=== PATIENT | female | born 1960 | race Caucasian/White ===

== ENCOUNTER → 2023-11-08 06:34 | Day surgery (SDC) | payer OTHER, SELFPAY | LOC: GI 06:34 | PROVIDERS: ATTENDING PHYSICIAN Internal Medicine | DX: Z12.11 Encounter for screening for malignant neoplasm of colon (principal); K55.20 Angiodysplasia of colon without hemorrhage; K64.8 Other hemorrhoids | CPT/HCPCS: G0121 ==

== ENCOUNTER 2023-11-19 05:41 | Emergency (ER) | payer OTHER, SELFPAY ==
[2023-11-19 05:45] VITALS: BP 148/73
--- NOTE | 2023-11-19 06:48 | ED.MUSCINJ ---
HPI-Injury
<Fatoumata Khan DO, Resident - Last Filed: 11/19/23 07:41>
General
Chief Complaint: Musculo-Skeletal Complaint
Source: patient
Time Seen by Provider: 11/19/23 06:36
History of Present Illness-Injury
Is this injury a work related problem?: No
Is pt an associate of [facility]/[place]?: No
Initial Injury comments:
Patient is a 63 YO F presenting to the ED with pain, swelling and feelings of 'lack of circulation' to right hand below level of wrist. She states she was gardening yesterday and afterwards was feeling discomfort which progressed to swelling,
significant pain and inability to bend or use right hand without pain. She took Advil and soaked her hand in epsom salts, without relief.
Review of Systems
<Fatoumata Khan DO, Resident - Last Filed: 11/19/23 07:41>
Review of Systems
Constitutional: Reports no symptoms
EENT: Reports no symptoms
Respiratory: Reports no symptoms
Cardiac: Reports no symptoms
ABD/GI: Reports no symptoms
Skin: Reports other (tightness, swelling)
Neurological: Reports no symptoms
Psychiatric: Reports no symptoms
Musculoskeletal Injury Exam
<Fatoumata Khan DO, Resident - Last Filed: 11/19/23 07:41>
Musculoskeletal Injury Exam
Right Hand:
Pain with Movement?: Severe
Tender to palpation?: Moderate
Soft tissue swelling?: Moderate
External deformity and angulation?: Mild
Joint effusion?: None
Hematoma-local bleeding into tissue?: None
Strain- Sprain- Tear (Connective tissue injury)?: None
Crepitus with movement?: No
Joint instability?: No
Malalignment/deformity?: No
Range of motion: Limited
Distal skin color and temperature: pale
Phy Exam
<Fatoumata Khan DO, Resident - Last Filed: 11/19/23 07:41>
General Physical Exam
General Presentation: well appearing and no apparent distress
General Habitus: normal
General Mental: alert
General Hydration: appears well hydrated
Cardiovascular Exam
Cardiovascular Exam: regular rate/rhythm, no edema, no gallop, no JVD, no murmur and normal peripheral pulses
Pulmonary Exam
Pulmonary Exam: lungs clear, no respiratory distress, no rales, chest non tender, no crackles, no rhonchi, no stridor, no wheezing and no cough
Musculoskeletal Exam
Musculoskeletal Exam: edema, joint swelling and other (right hand tenderness, decreased ROM)
Psychiatric Exam
Psychiatric Exam: normal mood/affect
Injury Course
<Fatoumata Khan DO, Resident - Last Filed: 11/19/23 07:41>
Orders/Labs/Results
Orders:
Orders
11/19/23 05:49
CR Hand - Right Min 3 Views Urgent
Comment:
Reason For Exam: pain, swelling
CR Wrist - Right Min 3 Views Urgent
Comment:
Reason For Exam: pain, swelling
11/19/23 07:14
Oxycodone [Roxicodone] 5 mg PO NOW STA
11/19/23 07:16
Prednisone [Deltasone] 50 mg PO NOW STA
<Jordan Nuñez, DO - Last Filed: 11/19/23 08:22>
Orders/Labs/Results
Orders:
Orders
11/19/23 05:49
CR Hand - Right Min 3 Views Urgent
Comment:
Reason For Exam: pain, swelling
CR Wrist - Right Min 3 Views Urgent
Comment:
Reason For Exam: pain, swelling
11/19/23 07:14
Oxycodone [Roxicodone] 5 mg PO NOW STA
11/19/23 07:16
Prednisone [Deltasone] 50 mg PO NOW STA
<Fatoumata Khan DO, Resident - Last Filed: 11/19/23 07:41>
MDM/Problems Addressed
Differential Diagnosis Includes:
Arthritis
MDM/Problems Addressed:
Pt is a 63 YO F presenting to the ED with wrist and hand pain on the right side. Hand and wrist XRay look negative per ED attending read. 5 mg Oxycodone and 50 mg Prednisone given in ED. 5 day script for both Oxycodone and Prednisone given for pain
and swelling management.
Chronic conditions affecting care:
Arthritis
Acute Exacerbation and/or Progression of Chronic Illness:
Arthritis
<Fatoumata Khan DO, Resident - Last Filed: 11/19/23 07:41>
*Radiology
Radiology exam reviewed: preliminary read by ED provider
*Pulse Oximetry
Patient hypoxic: no
*EKG
Interpreted by ED Provider?: NA
*Charge Hand Interpretation
Rate: Charge Hand- N/A
*Critical Care Note
Total Time (30-74mins, 75-104mins- exclusive of procedures): Not Applicable
ED Attending Note
<Fatoumata Khan DO, Resident - Last Filed: 11/19/23 07:41>
-
Portions of this chart may have been created with voice recognition software.� Occasional wrong word or��sound alike� substitutions may have occurred due to the inherent limitations of voice recognition software.
<Jordan Nuñez DO - Last Filed: 11/19/23 08:22>
ED Attending Note
Patient seen and examined by attending physician: Yes
I performed a history and physical exam of patient and discussed management with resident, I reviewed resident's note and agree with documented findings and plan of care.: Yes
ED Attending Note:
I agree with the residents note
Patient complaining of right hand and wrist pain. Pain developed after doing some gardening yesterday. No fever or chills. Patient is right-hand dominant. She has history of arthritis.
Exam:
Swelling noted particularly the base of the index and middle finger MCP joint. Capillary refill is brisk. Pulses are intact.
Imaging shows no acute abnormality.
Suspect exacerbation of degenerative joint disease. Will treat with NSAIDs and steroids.
Discharge Plan
Departure
Patient Disposition: Home (Routine Discharge)
Date of Disposition: 11/19/23
Time of Disposition: :22
Patient with high blood pressure during this ER visit?: Yes
Condition: Good
Discharge Problem:
Arthritis of hand, right
Instructions: Rheumatoid Arthritis (DC), BLOOD PRESSURE
Prescriptions:
New
oxycodone 5 mg tablet
5 mg PO Q6H PRN (Reason: Pain) Qty: 5 0RF
prednisone 20 mg tablet
40 mg PO DAILY Qty: 8 0RF
No Action
calcium carbonate 600 MG tablet
600 mg PO BID
cholecalciferol (vitamin D3) [Vitamin D3] 1,000 UNIT capsule
1,000 unit PO DAILY
vitamin E (dl, acetate) 400 UNITS capsule
400 units PO DAILY
[id number] liver-vit A-D3 [cod liver oil] 1 EACH capsule
1 cap PO DAILY
Eucerin Eczema Cream Tube
1 gm topical PRN PRN (Reason: eczema)
Glucosamine/Chondroitin/Msm
1 tab PO BID
Patient Comments:
1500mg, 1200mg, 500mg
Losartan
100 mg PO DAILY
Lubricating Eye Drops
2 drp BOTH EYES DAILY
Neosporin Tube
1 gm topical PRN PRN (Reason: cuts)
Nystsatin Cream Tube
1 gm topical PRN PRN (Reason: fungal infection)
Turmeric/Curcumin Tab
1,000 mg PO BID
mupirocin 1 APPLIC ointment
1 applic intranasal BID Qty: 1 0RF
Rx Instructions:
apply to each end of qtip and swab inside of nose--safe to use on nasal mucosa--start sun
celecoxib 200 MG capsule
200 mg PO DAILY 0RF
sennosides [senna] 1 TABLET tablet
2 tab PO BID 0RF
acetaminophen 325 MG tablet
650 mg PO Q4H 0RF
aspirin 325 MG tablet,delayed release (DR/EC)
325 mg PO DAILY 0RF
docusate sodium 100 MG capsule
100 mg PO BID 0RF
mupirocin 1 APPLIC ointment
1 applic intranasal BID 0RF
oxycodone 5 MG tablet
5 mg PO Q4HPRN PRN (Reason: mild pain) 0RF
Referrals:
Herve Mayfield MD [Family Provider] - Call in 1-3 days for appt
Interventions
Interventions:
*Risk Screen - Suicide Last Done: 11/19/23 05:45
*General Assessment Last Done: 11/19/23 05:45
*Neglect/Abuse Screening Last Done: 11/19/23 05:45
ED- Fall Risk Assessment Last Done: 11/19/23 06:57
*ED COVID-19 Vaccine History Last Done: 11/19/23 06:54
*Nursing Disposition Last Done: 11/19/23 07:45
ED-Musculoskeletal Assessment Last Done: 11/19/23 06:57
Discharge Date and Time
Discharge Date/Time: 11/19/23 08:12
Print Language: FAROESE
[2023-11-19 06:56] VITALS: BP 143/62
[2023-11-19] MEDS: ROXICODONE 5 MG PO (07:27)
[2023-11-19] MEDS: DELTASONE 50 MG PO (07:27)
== END 2023-11-19 08:12 | disposition home or self-care (01) ==
LOC: EMR 05:41
PROVIDERS: EMERGENCY PHYSICIAN Emergency Medicine; FAMILY PHYSICIAN Family Medicine
DX: M19.041 Primary osteoarthritis, right hand (principal); M79.641 Pain in right hand; M25.531 Pain in right wrist; R03.0 Elevated blood-pressure reading, without diagnosis of hypertension; Z79.82 Long term (current) use of aspirin; Z88.2 Allergy status to sulfonamides; Z91.018 Allergy to other foods; Z91.048 Other nonmedicinal substance allergy status
CPT/HCPCS: 99283; 73110; 73130

== ENCOUNTER → 2023-11-24 08:22 | Outpatient (REF) | payer OTHER, SELFPAY | LOC: WDC 08:22 | PROVIDERS: ATTENDING PHYSICIAN Family Medicine | DX: Z12.31 Encounter for screening mammogram for malignant neoplasm of breast (principal) | CPT/HCPCS: 77063; 77067 ==

== ENCOUNTER → 2024-01-18 11:24 | Outpatient (REF) | payer OTHER, SELFPAY | LOC: HWRAD 11:24 | PROVIDERS: ATTENDING PHYSICIAN Family Medicine; OTHER PHYSICIAN Internal Medicine Rheumatology | DX: M79.641 Pain in right hand (principal); M79.642 Pain in left hand | CPT/HCPCS: 73130 ==

== ENCOUNTER → 2024-09-10 15:17 | Outpatient (REF) | payer OTHER, SELFPAY | LOC: RAD 15:17 | PROVIDERS: ATTENDING PHYSICIAN Nurse Practitioner Family; FAMILY PHYSICIAN Family Medicine | DX: M25.551 Pain in right hip (principal) | CPT/HCPCS: 73502; 73552 ==

== ENCOUNTER 2024-11-01 09:27 | Outpatient (RCR) | payer OTHER, SELFPAY | END 2024-11-01 23:59 | disposition home or self-care (01) | LOC: RPT 09:27 | PROVIDERS: ATTENDING PHYSICIAN Physical Medicine & Rehabilitation; FAMILY PHYSICIAN Family Medicine | DX: M54.16 Radiculopathy, lumbar region (principal) | CPT/HCPCS: 97110; 97162; 97535 ==

== ENCOUNTER → 2024-11-26 11:17 | Outpatient (REF) | payer OTHER, SELFPAY | LOC: WDC 11:17 | PROVIDERS: ATTENDING PHYSICIAN Obstetrics & Gynecology Gynecology; FAMILY PHYSICIAN Family Medicine | DX: Z12.31 Encounter for screening mammogram for malignant neoplasm of breast (principal) | CPT/HCPCS: 77063; 77067 ==

== ENCOUNTER 2024-11-28 11:09 | Outpatient (RCR) | payer OTHER, SELFPAY | END 2024-11-28 23:59 | disposition home or self-care (01) | LOC: RPT 11:09 | PROVIDERS: ATTENDING PHYSICIAN Physical Medicine & Rehabilitation; FAMILY PHYSICIAN Family Medicine | DX: M54.16 Radiculopathy, lumbar region (principal); Z73.6 Limitation of activities due to disability; R26.89 Other abnormalities of gait and mobility; M62.81 Muscle weakness (generalized); M06.9 Rheumatoid arthritis, unspecified; G89.29 Other chronic pain | CPT/HCPCS: 97110 ==

== ENCOUNTER 2025-04-04 10:24 | Inpatient (IN) | payer OTHER, SELFPAY ==
[2025-04-04] VITALS (17 sets, daily range): BP systolic 103–147; BP diastolic 55–81; BMI 21.0
--- NOTE | 2025-04-04 05:16 | ED.GENMED ---
History of Present Illness
<Brianna Kumari PA-C - Last Filed: 04/05/25 07:07>
General
Chief Complaint: Abdominal Pain
Time Seen by Provider: 04/04/25 05:06
History of Present Illness
History of Present Illness:
see MDM
Phy Exam
<Brianna Kumari PA-C - Last Filed: 04/05/25 07:07>
Physical Exam
Physical Exam:
see MDM
Course
<Brianna Kumari PA-C - Last Filed: 04/05/25 07:07>
Orders/Labs/Results
Orders:
Orders
04/04/25 05:16
CT Abd/pel W Iv And Oral Contr Urgent
Comment:
Reason For Exam: RLQ Pain
0.9% Sodium Chloride 1000 ml [Nss] 1,000 ml IV BOLUS
Iohexol [Omnipaque] See Protocol PO NOW STA
Ketorolac [Toradol] 15 mg IV NOW STA
04/04/25 05:34
Complete Blood Count/With Diff Urgent
Comprehensive Metabolic Panel Urgent
Lipase Urgent
04/04/25 Breakfast
NPO
Allow oral meds: No
Allow clear liquids: No
04/04/25 08:09
Urinalysis Reflex To Culture Urgent
Date Specimen was Collected: 04/04/25
Time Specimen was Collected: 08:08
Urine Microscopic Reflex Cult Urgent
04/04/25 08:57
Piperacillin/Tazo 3.375 Gram [Zosyn] 3.375 gram in 50 ml IV NOW
04/04/25 08:59
Consult Surgery [SURGICAL CONSULT] Urgent
Consulting Provider: David Echevarria
Was physician already notified: Yes
04/04/25 09:10
Fentanyl Citrate/Pf [Sublimaze] 25 mcg IV [id number] PRN
HYDROmorphone [Dilaudid] 0.25 mg IV PACU-Q5MPRN PRN
HYDROmorphone [Dilaudid] 0.5 mg IV PACU-Q5MPRN PRN
Ondansetron Injectable [Zofran] 4 mg IV PACU-ONCEPRN PRN
Prochlorperazine [Compazine] 5 mg IV PACU-ONCEPRN PRN
Notify MD As Directed
Notify physician if: for SDS patients with known or suspected sleep obstructive sleep apnea, monitor in the
PACU.
Notify MD for any apneic/desaturation episodes
O2 Therapy [RESP] Urgent
Titrate/Wean O2 to maintain O2 sat greater than (%): 92
Special Instructions: -Provide supplemental oxygen to achieve O2 sat of 92% or greater.
-After 15 min, may wean O2 and discontinue if patient is able to maintain O2 sat of 92%
or greater during recovery period.
If patient is a discharge home, without oxygen therapy, notify anestheiologist if
unable to maintain O2 SAT of 92% or greater on room air for MD clearance.
04/04/25 09:15
Normosol (Mult Electrolytes) [Normosol-R/Plasmalyte-A] 1,000 ml IV PER PROTOCOL
04/04/25 09:57
Admit/Transfer Patient As Directed
Co-Sign Provider:
Level of Care: Inpatient admission
Assign to:: Medical/Surgical
Physician / Group: hospitalist
Diagnosis: acute appendicitis
Reason for Hospitalization: acute appendicitis
Expected length of stay greater than two midnights?: Yes
ELOS- Estimated Length of Stay in days: 3
I certify the patient meets the requirements for IP care: Yes
04/04/25 09:58
Bupivacaine 0.5%Pf/Epinephrin [Sensorcain-Mpf Epi 0.5%-0.0005] 30 ml .ROUTE .STK-MED ONE
PRN Pain Medication Management As Directed
May give lesser potent ordered pain med per pt: Yes
preference::
Protocol:: Medication orders for pain may be administered in a
manner that supports deferring to patient preference
when the pt is:
- Requesting an ordered lesser potent pain medication.
Least to most potent pain medications are defined
as: acetaminophen < NSAID < tramadol < opioids
(morphine, oxycodone, hydromorphone).
- Requesting a lesser dose of the same medication IF
ORDERED.
- Requesting a less intrusive route of administration
if both routes are prescribed by the provider (PO <
IV).
04/04/25 10:04
Dexamethasone Sod Phosphate [Decadron] 20 mg .ROUTE .STK-MED ONE
Fentanyl Citrate/Pf [Sublimaze] 100 mcg .ROUTE .STK-MED ONE
Lidocaine HCl/Pf [Xylocaine-Mpf 1% Vial] 50 mg .ROUTE .STK-MED ONE
Midazolam HCl [Versed] 2 mg .ROUTE .STK-MED ONE
Ondansetron Injectable [Zofran] 4 mg .ROUTE .STK-MED ONE
Propofol [Diprivan] 20 ml .ROUTE .STK-MED
04/04/25 10:07
Code Status As Directed
Resuscitation Status: Full Code
04/04/25 10:08
Rocuronium [place] [Rocuronium] 50 mg .ROUTE .STK-MED ONE
04/04/25 10:16
Bisacodyl [Dulcolax] 10 mg RECTAL [id number] PRN
04/04/25 10:17
Activity As Directed
Activity Level: Out of Bed-Early Mobility
Vital Signs As Directed
Frequency: Per unit guidelines
04/04/25 10:28
HYDROmorphone [Dilaudid] 0.25 mg IV Q4HPRN PRN
04/04/25 10:30
0.9% Sodium Chloride 1000 ml [Nss] 1,000 ml IV 100 mls/hr
04/04/25 11:00
Ketorolac [Toradol] 10 mg IV Q6HPRN PRN
04/05/25 05:28
Basic Metabolic Panel IN AM
Complete Blood Count/With Diff IN AM
Abnormal Lab Results
04/04/25 04/04/25
05:34 08:09
WBC 16.2 H 10^3/uL
(4.8-10.8)
Abs Immat Gran (auto) 0.1 H 10^3/uL
(0-0.05)
Absolute Neuts (auto) 13.3 H 10^3/uL
(1.4-6.5)
Absolute Monos (auto) 1.5 H 10^3/uL
(0.1-0.6)
Neutrophils % 82.6 H %
(42.2-75.2)
Lymphocytes % 7.2 L %
(20.5-51.1)
Creatinine 0.5 L mg/dL
(0.6-1.0)
Glucose 127 H mg/dl
(70-99)
Urine Bacteria (Reflex) Few A
(Negative)
Urine Albumin (Reflex) 1+ A
(Neg - Trace)
04/04/25 05:34
04/04/25 05:34
Vital Signs
Initial and Last Documented VS:
Initial Vital Signs
Temp Pulse Resp BP Pulse Ox
36.8 C 91 20 143/81 99
04/04/25 04:55 04/04/25 04:55 04/04/25 04:55 04/04/25 04:55 04/04/25 04:55
Last Documented Vital Signs
Temp Pulse Resp BP Pulse Ox
36.7 C 58 16 130/67 94
04/05/25 03:00 04/05/25 03:00 04/05/25 03:00 04/05/25 03:00 04/05/25 03:00
<Vamsi Beth, DO - Last Filed: 04/04/25 09:00>
Orders/Labs/Results
Orders:
Orders
04/04/25 05:16
CT Abd/pel W Iv And Oral Contr Urgent
Comment:
Reason For Exam: RLQ Pain
0.9% Sodium Chloride 1000 ml [Nss] 1,000 ml IV BOLUS
Iohexol [Omnipaque] See Protocol PO NOW STA
Ketorolac [Toradol] 15 mg IV NOW STA
04/04/25 05:34
Complete Blood Count/With Diff Urgent
Comprehensive Metabolic Panel Urgent
Lipase Urgent
04/04/25 Breakfast
NPO
Allow oral meds: No
Allow clear liquids: No
04/04/25 08:09
Urinalysis Reflex To Culture Urgent
Date Specimen was Collected: 04/04/25
Time Specimen was Collected: 08:08
Urine Microscopic Reflex Cult Urgent
04/04/25 08:57
Piperacillin/Tazo 3.375 Gram [Zosyn] 3.375 gram in 50 ml IV NOW
04/04/25 08:59
Consult Surgery [SURGICAL CONSULT] Urgent
Consulting Provider: David Echevarria
Was physician already notified: Yes
04/04/25 09:10
Fentanyl Citrate/Pf [Sublimaze] 25 mcg IV [id number] PRN
HYDROmorphone [Dilaudid] 0.25 mg IV PACU-Q5MPRN PRN
HYDROmorphone [Dilaudid] 0.5 mg IV PACU-Q5MPRN PRN
Ondansetron Injectable [Zofran] 4 mg IV PACU-ONCEPRN PRN
Prochlorperazine [Compazine] 5 mg IV PACU-ONCEPRN PRN
Notify MD As Directed
Notify physician if: for SDS patients with known or suspected sleep obstructive sleep apnea, monitor in the
PACU.
Notify MD for any apneic/desaturation episodes
O2 Therapy [RESP] Urgent
Titrate/Wean O2 to maintain O2 sat greater than (%): 92
Special Instructions: -Provide supplemental oxygen to achieve O2 sat of 92% or greater.
-After 15 min, may wean O2 and discontinue if patient is able to maintain O2 sat of 92%
or greater during recovery period.
If patient is a discharge home, without oxygen therapy, notify anestheiologist if
unable to maintain O2 SAT of 92% or greater on room air for MD clearance.
04/04/25 09:15
Normosol (Mult Electrolytes) [Normosol-R/Plasmalyte-A] 1,000 ml IV PER PROTOCOL
04/04/25 09:57
Admit/Transfer Patient As Directed
Co-Sign Provider:
Level of Care: Inpatient admission
Assign to:: Medical/Surgical
Physician / Group: hospitalist
Diagnosis: acute appendicitis
Reason for Hospitalization: acute appendicitis
Expected length of stay greater than two midnights?: Yes
ELOS- Estimated Length of Stay in days: 3
I certify the patient meets the requirements for IP care: Yes
04/04/25 09:58
Bupivacaine 0.5%Pf/Epinephrin [Sensorcain-Mpf Epi 0.5%-0.0005] 30 ml .ROUTE .STK-MED ONE
PRN Pain Medication Management As Directed
May give lesser potent ordered pain med per pt: Yes
preference::
Protocol:: Medication orders for pain may be administered in a
manner that supports deferring to patient preference
when the pt is:
- Requesting an ordered lesser potent pain medication.
Least to most potent pain medications are defined
as: acetaminophen < NSAID < tramadol < opioids
(morphine, oxycodone, hydromorphone).
- Requesting a lesser dose of the same medication IF
ORDERED.
- Requesting a less intrusive route of administration
if both routes are prescribed by the provider (PO <
IV).
04/04/25 10:04
Dexamethasone Sod Phosphate [Decadron] 20 mg .ROUTE .STK-MED ONE
Fentanyl Citrate/Pf [Sublimaze] 100 mcg .ROUTE .STK-MED ONE
Lidocaine HCl/Pf [Xylocaine-Mpf 1% Vial] 50 mg .ROUTE .STK-MED ONE
Midazolam HCl [Versed] 2 mg .ROUTE .STK-MED ONE
Ondansetron Injectable [Zofran] 4 mg .ROUTE .STK-MED ONE
Propofol [Diprivan] 20 ml .ROUTE .STK-MED
04/04/25 10:07
Code Status As Directed
Resuscitation Status: Full Code
04/04/25 10:08
Rocuronium [place] [Rocuronium] 50 mg .ROUTE .STK-MED ONE
04/04/25 10:16
Bisacodyl [Dulcolax] 10 mg RECTAL [id number] PRN
04/04/25 10:17
Activity As Directed
Activity Level: Out of Bed-Early Mobility
Vital Signs As Directed
Frequency: Per unit guidelines
04/04/25 10:28
HYDROmorphone [Dilaudid] 0.25 mg IV Q4HPRN PRN
04/04/25 10:30
0.9% Sodium Chloride 1000 ml [Nss] 1,000 ml IV 100 mls/hr
04/04/25 11:00
Ketorolac [Toradol] 10 mg IV Q6HPRN PRN
04/05/25 05:28
Basic Metabolic Panel IN AM
Complete Blood Count/With Diff IN AM
Abnormal Lab Results
04/04/25 04/04/25
05:34 08:09
WBC 16.2 H 10^3/uL
(4.8-10.8)
Abs Immat Gran (auto) 0.1 H 10^3/uL
(0-0.05)
Absolute Neuts (auto) 13.3 H 10^3/uL
(1.4-6.5)
Absolute Monos (auto) 1.5 H 10^3/uL
(0.1-0.6)
Neutrophils % 82.6 H %
(42.2-75.2)
Lymphocytes % 7.2 L %
(20.5-51.1)
Creatinine 0.5 L mg/dL
(0.6-1.0)
Glucose 127 H mg/dl
(70-99)
Urine Bacteria (Reflex) Few A
(Negative)
Urine Albumin (Reflex) 1+ A
(Neg - Trace)
04/04/25 05:34
04/04/25 05:34
Vital Signs
Initial and Last Documented VS:
Initial Vital Signs
Temp Pulse Resp BP Pulse Ox
36.8 C 91 20 143/81 99
04/04/25 04:55 04/04/25 04:55 04/04/25 04:55 04/04/25 04:55 04/04/25 04:55
Last Documented Vital Signs
Temp Pulse Resp BP Pulse Ox
36.7 C 58 16 130/67 94
04/05/25 03:00 04/05/25 03:00 04/05/25 03:00 04/05/25 03:00 04/05/25 03:00
<Brianna Kumari PA-C - Last Filed: 04/05/25 07:07>
MDM/Problems Addressed
Differential Diagnosis Includes:
see MDM
MDM/Problems Addressed:
Note:
CHIEF COMPLAINT(S)
Severe abdominal pain and nausea.
HISTORY OF PRESENT ILLNESS
The patient is a 64-year-old female h/o RA who presented to the emergency room with severe abdominal pain and nausea. She reports that the pain began suddenly at around 8:00 PM last night when she was preparing to go to bed early. The pain is sharp
and initially localized over the umbilicus, then radiated to the right side of the abdomen. The patient described the pain as worsening over time, particularly with movement, and tender to touch on the right side. Despite attempts to alleviate the
symptoms with simethicone and calcium carbonate (Gas-X and Tums) around 9:00 PM, there was no relief. Her pain currently rates as a 6 out of 10 but escalates with movement. 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
pt has not had fever, chills, urinary sypmtoms, diarrhea, urgency, frequency, vomiting
PAST MEDICAL AND SURGICAL HISTORY
The patient has had gallbladder surgery, two sections, and hip surgery. She also has a history of gallstones.
CHRONIC MEDICAL CONDITIONS SIGNIFICANTLY AFFECTING CARE
The patient has a history of hypertension for which she takes losartan and receives abatacept (Orencia) infusions monthly for rheumatoid arthritis.
MEDICATIONS
- Losartan for hypertension
- Finasteride for hair thinning
- Abatacept (Orencia) infusions for rheumatoid arthritis, next due next week.
REVIEW OF SYSTEMS
- Gastrointestinal: Abdominal pain, nausea, tenderness on the right abdominal area, no diarrhea.
- Urinary: No burning, frequency, or urgency noted.
- General: No fever reported.
PHYSICAL EXAM
GENERAL: Alert , in no apparent distress
EYE: pupils equal and reactive
NECK: Supple
ENT: o/p clr, mmm.
CARDIAC: Regular rate and rhythm .
LUNGS: Clear breath sounds bilaterally, no acute respiratory distress, no wheezes/rales/rhonchi
ABDOMEN: Soft, right lower quadrant tenderness, moderate, mild voluntary guarding, no rebound no cvat, normal bowel sounds
NEUROLOGICAL: Alert and oriented, no focal neuro deficits
SKIN: Warm and dry, skin intact.
MUSCULOSKELETAL: No edema, well perfused. neg marie's sign
PSYCH: Normal and appropriate interaction.
Nursing notes reviewed and vital signs reviewed.
PLAN
A computed tomography scan of the abdomen will be performed. Urinalysis will be conducted. The patient was advised to avoid eating or drinking until further tests are evaluated. The patient declined narcotic analgesia but agreed to ibuprofen for
pain relief. Intravenous fluids were discussed as part of the treatment plan.
DIFFERENTIAL DIAGNOSIS
The Differential Diagnosis includes, in no particular order and is not limited to:
1. Appendicitis
2. Cholecystitis
3. Intestinal obstruction
4. Gastroenteritis
5. Diverticulitis
6. Kidney stones
7. Peptic ulcer disease
8. Pancreatitis
9. Ovarian pathology (e.g., cyst, torsion)
10. Urinary tract infectio
64-year-old female got woken up from sleep by periumbilical pain that was severe that migrated to her right lower quadrant with some nausea without vomiting. There is no fever. She tried Gas-X without relief. She is not having any additional
symptoms. Patient is quite tender in the right lower quadrant. Will workup for an appendicitis versus diverticulitis. Previous cholecystectomy
Signed out to Dr. Beth pending CT
<Brianna Kumari PA-C - Last Filed: 04/05/25 07:07>
*Pulse Oximetry
SaO2: 99
Oxygen Mode of Delivery: Room air
Patient hypoxic: no (94)
*Critical Care Note
Total Time (30-74mins, 75-104mins- exclusive of procedures): Not Applicable
ED Attending Note
<Brianna Kumari PA-C - Last Filed: 04/05/25 07:07>
-
Portions of this chart may have been created with voice recognition software.� Occasional wrong word or��sound alike� substitutions may have occurred due to the inherent limitations of voice recognition software.
<Vamsi Beth, DO - Last Filed: 04/04/25 09:00>
ED Attending Note
Patient seen and examined by attending physician: Yes
I performed the substantive portion of visit, reviewed & personally made and approve the management plan that is documented in note by myself or GRACE.: Yes
ED Attending Note:
I have seen and evaluated the patient with a [id number] encounter. I have spoken to the advance practicer provider and involved in the medical history, the physical exam, medical decision making.
Evaluation and management service: agree unless noted differently below.
Results interpretation: agree unless noted differently below.
Focused HPI: 64-year-old female presenting with right lower quadrant pain. This is associated with chills.
Physical exam: Point tenderness to right lower quadrant without rebound
Medical Decision Making: CT concerning for acute appendicitis. Radiology concerned there could be a possible perforation component. General surgery made aware. Patient started on IV antibiotics. Will admit
Discharge Plan
Departure
Patient Disposition: Admit
Date of Disposition: 04/04/25
Time of Disposition: 08:58
Admit to: Med/Surg
Presentation/result/management discussed w/ accepting MD/DO: Hospitalist
Discharge Problem:
Acute appendicitis
Interventions
Interventions:
*Risk Screen - Suicide Last Done: 04/04/25 04:58
*General Assessment Last Done: 04/04/25 05:10
*Neglect/Abuse Screening Last Done: 04/04/25 04:58
*ED- Fall Risk Assessment Last Done: 04/04/25 04:58
*ED COVID-19 Vaccine History Last Done: 04/04/25 04:58
*ED Influenza Vaccine History Last Done: 04/04/25 04:58
*Nursing Disposition Last Done: 04/04/25 10:25
XV-Otthja-Pgwcuvezoo Assessment Last Done: 04/04/25 05:10
Discharge Date and Time
Discharge Date/Time: 04/04/25 10:29
[2025-04-04] MEDS: NSS 1000 IV ×2 (05:33→12:51)
[2025-04-04] MEDS: TORADOL 15 MG IV (05:35)
[2025-04-04] MEDS: OMNIPAQUE 50 ML PO (05:38)
[2025-04-04 05:53] LABS: Hematocrit 39.1 % (37.0-47.0); Hemoglobin 13.4 g/dL (12.0-16.0); Mean Corp Hgb Conc. 34.3 g/dL (33.0-37.0); Mean Corpuscular Volume 89.1 fL (81.0-99.0); Nucleated Red Blood Cells % 0 %; Platelet Count 231 10^3/uL (130-400); Red Cell Dist. Width 13.1 % (11.5-14.5)
[2025-04-04 06:09] LABS: ALT (SGPT) 21 U/L (0-35); AST (SGOT) 31 U/L (14-36); Albumin 4.2 g/dl (3.5-5.0); Alkaline Phosphatase 63 U/L (38-126); Blood Urea Nitrogen 16 mg/dl (7-17); Calcium 10.1 mg/dl (8.4-10.2); Carbon Dioxide 27 mmol/L (22-30); Chloride 105 mmol/L (98-107); Estimated Creatinine Clearance 91 ml/min; Glucose 127 mg/dl (70-99); Lipase 107 U/L (23-300); Potassium 3.9 mmol/L (3.5-5.1); Sodium 136 mmol/L (135-145); Total Protein 7.3 g/dl (6.3-8.2); eGFR > 60.00
[2025-04-04 08:27] LABS: Urine Character Clear (Clear)
[2025-04-04 08:46] LABS: Urine Red Blood Cell 0-2 /HPF (0-2); Urine White Cell 0-2 /HPF (0-5)
[2025-04-04] MEDS: ZOSYN 50 IV ×3 (09:32→22:32)
--- NOTE | 2025-04-04 10:16 | HPS.HSE ---
Addendum entered and electronically signed by Mateo Bradford MD 04/04/25 12:53:
Seen and examined by me independently in collaboration with the FP resident Dr. Garcia.
Past medical history/social history/medication/allergies reviewed.
Lab data and imaging data reviewed.
Patient's presents with acute abdominal pain and nausea and discovered to have acute appendicitis.
Patient seen postop in PACU. She had laparoscopic adenectomy. Discussed with Dr. Echevarria general surgeon-she is severely inflamed appendix with perforation.
Currently in PACU. Denies any nausea vomiting. Denies any chest pain or palpitations. Denies shortness of breath.
Pain from surgical site and abdomen is okay.
No fever or chills.
Alert and oriented. Nontoxic looking.
s1+s2 heard no tachycardia. Chest anteriorly clear.
Abdomen soft.
Patient already cleared for diet.
Continue with empirical Zosyn for now with above findings.
Hold Orencia.
Continue with losartan with parameters
Original Note:
Family Physician
-
Family Physician: Mikaela Shell
Chief Complaint
-
abd pain, nausea, vomiting
History of Present Illness
64-year-old female with past medical history of hypertension, rheumatoid arthritis on abatacept presented with severe abdominal pain and nausea. She notes that pain started yesterday at around 8 PM when she was getting ready to go to bed. Pain was
located around the right side of abdomen surrounding umbilical and right lower quadrant. She described pain as sharp in intensity and initially it was localized over the umbilical's then radiated to right lower quadrant. The pain worsened over
time particularly with movement. She tried Gas-X and Tums around 9-9:30 PM unfortunately there was no relief. Her pain is around 8 out of 10 and worsens with movement. She denies any fever, chills, chest pain, shortness of breath.
In the ED, patient is afebrile but experiencing chills. White count is 11,[address] abdominal/pelvis scan shows acute appendicitis with perforation. Vitals are stable. She is on fluids and IV Zosyn. General surgery is aware and patient is being
taken to surgery for appendecectomy.
Medical History
Past Medical History
Past Medical History: Reports HTN and Other (Rheumatoid arthritis)
Past Surgical History: Reports Cholecystectomy
Social History
Tobacco: Non-smoker
Alcohol: None
Drug: None
Personal:
Living: With Family
Employment: Employed
Family History
Family History: Not pertinent
Allergies / Home Medications
Allergies reflects when Allergies were last updated in [employer].
Home Medications with original date entered in [employer]
Allergy/Medication List:
Allergies
Allergy/AdvReac Type Severity Reaction Status Date / Time
carrot Allergy Anaphylaxis Verified 04/04/25 09:25
pollen extracts Allergy Sneezing Verified 04/04/25 09:25
watery
eyes -
seasonal
Sulfa (Sulfonamide AdvReac stomach Verified 04/04/25 04:58
Antibiotics) upset
Home Medications
calcium carbonate 600 mg PO BID Supplement 03/24/18
abatacept (with maltose) 250 mg intravenous solution (Orencia (with maltose)) 500 mg IV Q4W Autoimmune Disorder 04/04/25
finasteride 5 mg tablet 5 mg PO DAILY alopecia 04/04/25
glucosamine sulf dipot chlr,msm,chond 550 mg-C 30 mg-ingrid 1 mg capsule (Glucosamine Chondroitin) 1 cap PO BID Supplement 04/04/25
losartan 50 mg tablet 50 mg PO DAILY Blood Pressure 04/04/25
multivitamin 1 tab PO BID Supplement 04/04/25
omega 3-dha 120 mg-epa 180 mg-fish oil 600 mg capsule 1 cap PO BID Supplement 04/04/25
turmeric 400 mg capsule 400 mg PO BID Supplement 04/04/25
Review of Systems
-
History Source: Patient
A 12 point ROS was completed and negative except as noted: Yes
Physical Exam
Vital Signs
Vital Signs
Temp Pulse Resp BP Pulse Ox
100.6 F H 74 22 147/66 95
04/04/25 09:30 04/04/25 08:30 04/04/25 08:30 04/04/25 08:12 04/04/25 09:31
Physical Exam
General: Conversant and Pain (moderate - severe abd pain )
HEENT: NormoCephalic and Anicteric
Respiratory: Clear
Cardiac: S1/S2 and Regular Rhythm
GI: Non Distended, Normal Bowel Sounds and Tender (moderate RLQ tenderness with voluntary guarding, no rebound tenderness. )
Musculoskeletal: No Edema
Skin: Warm and Dry
Neuro: AO x 3
Hematologic/Lymphatic: No Lymphadenopathy
Psych: Calm
Laboratory Results
-
04/04/25 05:34
04/04/25 05:34
Laboratory Results
Total Bilirubin 0.6 mg/dl (0.2-1.3) 04/04/25 05:34
AST 31 U/L (14-36) 04/04/25 05:34
ALT 21 U/L (0-35) 04/04/25 05:34
Alkaline Phosphatase 63 U/L (38-126) 04/04/25 05:34
Lipase 107 U/L (23-300) 04/04/25 05:34
Data Reviewed
-
CT Scan: Report Reviewed by me and Discussed with Physician
Lab Data: Labs Reviewed by me and Discussed with Physician
Impression/Plan
-
IMPRESSION:
Acute appendicitis
Nausea/vomiting
History of hypertension
History of rheumatoid arthritis
History of androgenic alopecia
64-year-old female presented with right lower quadrant pain and nausea. CT scan of abdomen/pelvis reveals acute appendicitis with possible appendiceal perforation.
PLAN:
Acute appendicitis
Afebrile, leukocytosis 16,200 with left shift
NPO for surgery
Hold oral medications
IV fluids and IV Dilaudid for pain control
Continue IV Zosyn, started in ED as pt started to experience chills.
General Surgery aware, soon patient will be taken to surgery
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
Nausea/vomiting
IV Zofran as needed
Keep patient NPO
History of hypertension
Hold losartan
History of rheumatoid arthritis
Hold abatacept
History of androgenic alopecia
Hold finasteride
Full code
NPO
Heparin
--- NOTE | 2025-04-04 11:12 | W.IMMPOSTOP ---
Surgical Immed Post Op Note
-
Primary Surgeon: Swathi
Pre-op Diagnosis: Acute appendicitis
Post-op Diagnosis: Same
Procedure Performed: Laparoscopic appendectomy
Anesthesia Type: GETA
Specimen / Cultures: Appendix
Estimated Blood Loss: 7cc
Complications: None immediate
Operative Findings: Severely inflamed gangrenous appendix, no perforation no pus
--- NOTE | 2025-04-04 11:20 | OR.RPT ---
Operative Report
Operative Report
Primary Surgeon: Swathi
Pre-op Diagnosis: Acute appendicitis
Post-op Diagnosis: Same
Procedure Performed: Laparoscopic appendectomy
Anesthesia Type: GETA
Specimen / Cultures: Appendix
Estimated Blood Loss: 7cc
Complications: None immediate
Operative Findings: Severely inflamed gangrenous appendix, no perforation no pus
Date of Surgery: 04/04/25
Indications: This 64F developed right lower quadrant abdominal pain and on workup was found to have acute appendicitis. Laparoscopic appendectomy was elected.
Description of procedure: The patient was placed on the operating table in the supine position. General anesthesia was induced. A time-out was completed verifying correct patient, procedure, site, positioning, and special equipment prior to
beginning this procedure. An orogastric tube was placed. The abdomen was prepped and draped in the usual sterile fashion. A stab incision was made in left upper quadrant and the Veress needle was inserted. Proper position was confirmed by aspiration
and saline meniscus test. The abdomen was insufflated with carbon dioxide to a pressure of 12 mmHg. The patient tolerated insufflation well.
A 5mm optical trocar was then inserted at the left lower quadrant. The laparoscope was inserted and the abdomen inspected. No injuries from initial trocar placement or Veress needle insertion were noted. Additional trocars were then inserted in the
following locations: a 12-mm trocar at the umbilicus and a 5-mm trocar midline in the suprapubic space. The abdomen was inspected and no abnormalities were found. The table was placed in the Trendelenburg position with the right side up. TThe
appendix was lateral to the cecum and densely adherent to it. The tip of the appendix was then gently grasped with an atraumatic grasper and retracted toward the patient�s feet and abdominal wall. The cecum was gently bluntly teased away from it.
This maneuver exposed the appendiceal blood supply which was controlled with the Ligasure device. Following this, a laparoscopic linear cutting stapler with a 45mm mckeon load was deployed and used to transect the appendix at its base. The appendix
appeared gangrenous but without perforation. The appendix was placed in an endoscopic retrieval bag, removed through the umbilical port, and passed off the table as a specimen.
We then turned our attention to the staple line, which was noted to be hemostatic. The pelvis and right lower quadrant were irrigated with copious sterile saline until effluent ran clear. The umbilical trocar site was closed at the fascial level
laparoscopically with 2-0 PDS under direct vision. Secondary trocars were removed under direct vision and noted to be hemostatic. The laparoscope was withdrawn and the abdomen was allowed to collapse. The skin was closed with subcuticular sutures of
4-0 monocryl and topical skin adhesive. The orogastric tube was removed.
The patient tolerated the procedure well and was taken to the postanesthesia care unit in stable condition.
--- NOTE | 2025-04-04 11:25 | CON.GS ---
Consultation
-
Date/Time Consultation Performed: 04/04/25
Requesting Provider: Kirit
Performing Provider: Swathi
Reason for Consultation: Acute appendicitis
Medical History
-
Chief Complaint: Abd pain
History of Present Illness:
64F with acute onset abd pain a/w nausea without emesis. Pain was initially periumbilical and migrated to rlq. Described as sharp and stabbing. Denies f/c, denies changes to stool or urine. Pain worse with the drive in to the hospital with bumps in
the road.
Past Medical History
Past Medical History: HTN and Other (RA)
Past Surgical History: Cholecystectomy and Other (lower midline incision)
Social History
Tobacco: Non-Smoker
Alcohol: None
Drug: None
Personal:
Living: With Family
Employment: Employed
Allergies / Home Medications
Allergy/AdvReac Type Severity Reaction Status Date / Time
carrot Allergy Anaphylaxis Verified 04/04/25 09:25
pollen extracts Allergy Sneezing Verified 04/04/25 09:25
watery
eyes -
seasonal
Sulfa (Sulfonamide AdvReac stomach Verified 04/04/25 04:58
Antibiotics) upset
�Medication �Instructions �Recorded �Confirmed �Type
calcium carbonate 600 mg PO BID Supplement 03/24/18 04/04/25 History
abatacept (with maltose) 250 mg 500 mg IV Q4W Autoimmune Disorder 04/04/25 04/04/25 History
intravenous solution (Orencia
(with maltose))
finasteride 5 mg tablet 5 mg PO DAILY alopecia 04/04/25 04/04/25 History
glucosamine sulf dipot 1 cap PO BID Supplement 04/04/25 04/04/25 History
chlr,msm,chond 550 mg-C 30 mg-ingrid
1 mg capsule (Glucosamine
Chondroitin)
losartan 50 mg tablet 50 mg PO DAILY Blood Pressure 04/04/25 04/04/25 History
multivitamin 1 tab PO BID Supplement 04/04/25 04/04/25 History
omega 3-dha 120 mg-epa 180 mg-fish 1 cap PO BID Supplement 04/04/25 04/04/25 History
oil 600 mg capsule
turmeric 400 mg capsule 400 mg PO BID Supplement 04/04/25 04/04/25 History
Review of Systems
-
A 10 point review of systems was completed, and was negative except as per HPI.
Physical Exam
Vital Signs
Temp Pulse Resp BP Pulse Ox
100.6 F H 74 22 147/66 95
04/04/25 09:30 04/04/25 08:30 04/04/25 08:30 04/04/25 08:12 04/04/25 09:31
04/03/25 04/04/25 04/05/25
06:59 06:59 06:59
Actual Weight 60.8 kg
Body Mass Index (BMI) 21.0
Lab Results
04/04/25 05:34
04/04/25 05:34
WBC 16.2 10^3/uL (4.8-10.8) H 04/04/25 05:34
Hgb 13.4 g/dL (12.0-16.0) 04/04/25 05:34
Hct 39.1 % (37.0-47.0) 04/04/25 05:34
Plt Count 231 10^3/uL (130-400) 04/04/25 05:34
Abs Immat Gran (auto) 0.1 10^3/uL (0-0.05) H 04/04/25 05:34
Neutrophils % 82.6 % (42.2-75.2) H 04/04/25 05:34
Physical Exam
General: Well Developed, Well Nourished and No Apparent Distress
GI: Soft, Non Distended and Tender (ttp rlq)
Skin: Warm and Dry
Neuro: AO x 3
Psych: Calm
Data Reviewed
-
CT Scan: Image Personally Visualized and interpreted, Report Reviewed by me, Discussed with Physician and Discussed with Patient
Labs: Labs Reviewed by me, Discussed with Physician and Discussed with Patient
Assessment / Plan
-
64F with acute appendicitis
AFVSS, mild leukocytosis, ttp to rlq on exam
CT c/w acute appendicitis
OCTOR for lap appy
Hospitalist admission
IV abx
DVT ppx
--- NOTE | 2025-04-04 13:03 | PTCARENOTE ---
Pt arrived to 2S in bed. Full assessment completed. IVF infusing per order. Nasal cannula maintained. 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 Bed locked and in the lowest position, safety maintained. Oriented to room and call rivas, family at
bedside.
[2025-04-04] MEDS: TORADOL 10 MG IV (22:42)
[2025-04-05] MEDS: NSS 1000 IV (02:57)
[2025-04-05 03:00] VITALS: BP 130/67
[2025-04-05] MEDS: ZOSYN 50 IV ×2 (04:02→11:07)
[2025-04-05 06:13] LABS: Hematocrit 30.7 % (37.0-47.0); Hemoglobin 10.2 g/dL (12.0-16.0); Mean Corp Hgb Conc. 33.2 g/dL (33.0-37.0); Mean Corpuscular Volume 89.2 fL (81.0-99.0); Nucleated Red Blood Cells % 0 %; Platelet Count 166 10^3/uL (130-400); Red Cell Dist. Width 13.5 % (11.5-14.5)
[2025-04-05 06:22] LABS: Blood Urea Nitrogen 13 mg/dl (7-17); Calcium 8.4 mg/dl (8.4-10.2); Carbon Dioxide 25 mmol/L (22-30); Chloride 108 mmol/L (98-107); Estimated Creatinine Clearance 91 ml/min; Glucose 116 mg/dl (70-99); Potassium 3.5 mmol/L (3.5-5.1); Sodium 135 mmol/L (135-145); eGFR > 60.00
[2025-04-05 07:15] VITALS: BP 155/75
[2025-04-05] MEDS: COZAAR 50 MG PO (08:49)
--- NOTE | 2025-04-05 09:30 | W.DCSUMMARY ---
Discharge Summary
Discharge Data
Date of Admission: 04/04/25
Date of Discharge: 04/05/25
-
Pending Results: No
Hospital Course
Primary diagnosis:
Acute appendicitis status post laparoscopic appendectomy
Secondary diagnosis:
Essential hypertension
History of rheumatoid arthritis on Orencia
Androgenic alopecia
Hospital course:
Patient presented with acute abdominal pain and discovered to have acute appendicitis and concern of possible appendiceal perforation on CT. Seen by surgeon and went on to have laparoscopic appendectomy which showed gangrenous appendix without
perforation or pus. She did well postoperatively tolerating diet. General surgery recommended to continue antibiotics for a week due to nature of her appendicitis.
Today she is without much pain. Tolerating diet without nausea or vomiting. Had a bowel movement. Afebrile, pulse 54, blood pressure 155/75 and 98% on room air. Abdomen is soft. Not tachycardic. Chest is clear.
She is deemed medically stable for discharge home today.
Consultants on board:
General Surgery-David Chacon
Insert correction findings
Discharge Plan
-
Patient Disposition: Home (Routine Discharge)
Discharge Diagnosis/Procedures: acute appendicitis status post laparoscopic appendectomy
Diet: As tolerated and Regular
Activity: No strenuous activity
Additional Activity: do not lift over 20lbs for the next 2-3 weeks
Bathing Restrictions: OK to Shower
Wound Care: Glue will flake off your incisions on its own over the next 2-3 weeks
Referrals:
David Echevarria MD [Active, Surgical] - in two to four weeks
Mikaela Shell MD [Family Provider, Family Practice]
Prescriptions:
New
amoxicillin-pot clavulanate 875-125 mg tablet
1 tab PO BID Qty: 14 0RF
Continued
calcium carbonate 600 MG tablet
600 mg PO BID
losartan 50 mg Tablet
50 mg PO DAILY
finasteride 5 mg Tablet
5 mg PO DAILY
multivitamin Tablet
1 tab PO BID
omega 9-wku-zei-fish oil 120-180-600 mg Capsule
1 cap PO BID
turmeric 400 mg Capsule
400 mg PO BID
Glucosamine Chondroitin 550-30-1 mg Capsule
1 cap PO BID
Held
Orencia (with maltose) 250 mg Recon Soln
500 mg IV Q4W
Hold Instructions: Resume on 03/21/26. hold for at least 2 weeks after surgery, discuss your next dose with your prescribing doctor/merchant banker
Discharge Orders:
Discharge Patient (As Directed); Ordered 04/05/25
Ordered By: Mateo Bradford
Discharge Date and Time
Print Language: POLISH
--- NOTE | 2025-04-05 10:05 | W.PN.GS2 ---
Addendum entered and electronically signed by David Echevarria MD 04/05/25 10:32:
I saw and examined the patient.
The [employer] Sales Consultant's note was reviewed and I agree with the note.
Comment: Improved. Pain controlled. Hetal PO. Ambulating and voiding. AFVSS. Plan for DC with 7 day course augmentin. Hold next dose of orencia infusion
Original Note:
Today's Communication / Plan
-
dispo planning
Assessment / Plan
-
64 yo female with h/o RA on immunosuppression presenting with acute appendicitis now POD #1 lap appi
Afebrile since OR, VSS
Renal function stable, leukocytosis present with slight uptrend (reactive)
Following expected post op course
Plan:
Regular diet
Analgesics prn
Would continue ABX x7 days with transition to PO course upon discharge
OOB/Ambulate
Ok for dishcarge from surgical standpoint, d/w hospitalist at bedside
Subjective Data
-
Date of Service: April 05, 2025
Pt seen and examined at bedside with Dr. Echevarria. Denies n/v. Tolerating diet. Passing flatus. Pain minimal.
Objective Data
-
Intake and Output
04/04/25 04/05/25 04/06/25
06:59 06:59 06:59
Intake Total 1260 / 1260 480 / 480
Balance 1260 / 1260 480 / 480
Intake:
Oral fluids 510 / 510 480 / 480
IV fluids (Total) 700 / 700
Normosol 200 / 200
IV piggybacks 50 / 50
Other:
Number of approximated MODERATE 1 2
amounts of urine
Number of approximated LARGE 1
amounts of urine
Vital Signs
Temp Pulse Resp BP Pulse Ox
98.2 F 54 16 155/75 98
04/05/25 07:15 04/05/25 07:15 04/05/25 07:15 04/05/25 07:15 04/05/25 07:15
Lab Results
04/05/25 05:28
04/05/25 05:28
Calcium 8.4 mg/dl (8.4-10.2) D 04/05/25 05:28
Total Bilirubin 0.6 mg/dl (0.2-1.3) 04/04/25 05:34
AST 31 U/L (14-36) 04/04/25 05:34
ALT 21 U/L (0-35) 04/04/25 05:34
Alkaline Phosphatase 63 U/L (38-126) 04/04/25 05:34
Total Protein 7.3 g/dl (6.3-8.2) 04/04/25 05:34
Albumin 4.2 g/dl (3.5-5.0) 04/04/25 05:34
Physical Exam
-
NAD
ABD soft, nd, expected incisional tenderness
Incisions healing well, glue intact
Patient has a burton catheter: No
Patient has a central line: No
--- NOTE | 2025-04-05 10:53 | CM ---
CM following re: discharge planning.
Reviewed pt's chart, met with pt.
Pt is a 64 year old female, admitted with primary dx of POD #1 lap appi
Pt reports she lives alone in a 2SH, 1 step to enter, has 2 supportive children. 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
Discharge order noted. pt is aware and she stated she will drive home if she allows to or her girlfriend will transport.
No after care VN needs identified.
D/C plan: home no needs. Pt will drive home if able or her girlfriend will transport.
[2025-04-05 11:15] VITALS: BP 138/69
== END 2025-04-05 13:34 | disposition home or self-care (01) | DRG 399 ==
LOC: 2 SOUTH 10:24
PROVIDERS: Physician Assistant; Student in an Organized Health Care Education/Training Program; ADMITTING PHYSICIAN Internal Medicine; CONSULT PHYSICIAN Surgery; EMERGENCY PHYSICIAN Student in an Organized Health Care Education/Training Program; FAMILY PHYSICIAN Family Medicine
PROC: 0DTJ4ZZ Resection of Appendix, Percutaneous Endoscopic Approach (ICD-10-PCS; 2025-04-04)
DX: K35.32 Acute appendicitis with perforation, localized peritonitis, and gangrene, without abscess (principal); M06.9 Rheumatoid arthritis, unspecified; I10 Essential (primary) hypertension
CPT/HCPCS: 74177; 80048; 80053; 81003; 81015; 83690; 85025; 88304; 96361; 96365; 96375; 99285; Q9967